=== PATIENT | male | born 1985 | race Native Hawaiian/Other Pacific Islander ===

== ENCOUNTER 2019-12-17 13:10 | Outpatient (CLI) | payer OTHER | END 2019-12-17 20:33 | disposition home or self-care (01) | LOC: CT 13:10 | DX: R13.13 Dysphagia, pharyngeal phase (principal) ==

== ENCOUNTER 2021-07-07 16:37 | Outpatient (CLI) | payer OTHER | END 2021-07-07 19:07 | disposition home or self-care (01) | LOC: RAD 16:37 | PROVIDERS: ATTEND Nurse Practitioner | DX: R07.89 Other chest pain (principal); R10.12 Left upper quadrant pain ==